=== PATIENT | male | born 1985 | race Hispanic/Latino ===

== ENCOUNTER 2021-07-12 05:21 | Inpatient (IN) | payer OTHER ==
[~2021-07-12] VITALS: Ht 185.4 cm; Wt 220.0 kg
[2021-07-12] MEDS ORDERED: KETOROLAC 15MG/ML VIAL (15MG/ML) IV ONE (06:00)
[2021-07-12] MEDS ORDERED: ACETAMINOPHEN 500 MG TABLET PO ONE (06:00)
[2021-07-12] MEDS ORDERED: 0.9%NACL 1000ML 1,000 ML IV ONE (06:00)
[2021-07-12] MEDS: CEFTRIAXONE 1G VIAL IVP ONE ×2 (06:16→06:46)
[2021-07-12 06:43] LABS: BASOPHILS % (AUTO) 0.2 % (0.0-5.0); EOSINOPHILS % (AUTO) 0.6 % (0.0-8.0); HEMATOCRIT 38.7 % (42-54); LYMPHOCYTES % (AUTO) 18.4 % (21.0-51.0); MEAN CORPUSCULAR HEMOGLOBIN 27.9 pg (27.0-33.0); MEAN CORPUSCULAR HGB CONC 32.6 g/dL (32.0-36.0); MEAN CORPUSCULAR VOLUME 85.8 fL (79-99); NEUTROPHILS % (AUTO) 73.4 % (40.0-77.0); PLATELET COUNT (AUTO) 200 K/uL (130-400); RED BLOOD CELL COUNT(AUTO) 4.51 MIL/uL (4.50-6.20); WHITE BLOOD COUNT (AUTO) 12.1 K/uL (4.8-10.8)
[2021-07-12 07:13] LABS: ALBUMIN 3.1 g/dL (3.5-5.0); BILIRUBIN,TOTAL 0.4 mg/dL (0.2-1.0); CREATININE 0.7 mg/dL (0.5-1.5); CRP QUANTITATIVE 174.4 mg/L (0.00-9.0); POTASSIUM 3.7 mmol/L (3.5-5.1); TOTAL PROTEIN, SERUM 7.6 g/dL (6.0-8.3)
[2021-07-12 08:10] LABS: ERYTHROCYTE SEDIMENTATION RATE 67 MM/HR (0-15)
[2021-07-12] MEDS ORDERED: ONDANSETRON 4MG INJ IVP ONE (09:30)
[2021-07-12] MEDS ORDERED: ZOSYN 3.375GM +NS 50ML IV SCH (09:30)
[2021-07-12] MEDS ORDERED: MORPHINE 4 MG SYG IVP ONE (09:30)
[2021-07-12] MEDS: ZOSYN 3.375GM +NS 50ML IV SCH (10:00)
[2021-07-12] MEDS ORDERED: ACETAMINOPHEN 325 MG TAB PO PRN (10:00)
[2021-07-12 12:00] VITALS: BP 102/51
[2021-07-12] MEDS ORDERED: VANCOMYCIN PROTOCOL PER PHARMACY IV SCH (13:00)
[2021-07-12] MEDS ORDERED: ACETAMINOPHEN WITH CODEINE 1 TAB TAB PO PRN (13:00)
[2021-07-12] MEDS ORDERED: COMPOUND IV REFRIGERATED 1 EACH IVSOLN MISC PRN (13:30)
[2021-07-12] MEDS: 0.9%NACL 1000ML 1,000 ML IV SCH ×2 (14:42→21:25)
[2021-07-12] MEDS: VANCOMYCIN 1.5GM/NS 250ML IV SCH ×4 (14:42→21:25)
[2021-07-12 16:00] VITALS: BP 132/86
[2021-07-12] MEDS ORDERED: HYDROCODONE/ACETAMINOPHEN 10/325 MG TAB PO PRN (16:00)
[2021-07-12] MEDS: CEFTRIAXONE 2GM VIAL IVP SCH (18:27)
[2021-07-12] MEDS: MORPHINE 2 MG SYG IVP PRN ×2 (18:36→23:28)
[2021-07-12 18:57] LABS: APPEARANCE,URINE Clear (CLEAR); BILIRUBIN,URINE Negative (NEGATIVE); COLOR,URINE Dark Yellow (YELLOW); GLUCOSE, URINE (UA) Negative (NEGATIVE); KETONES,URINE Trace mg/dL (NEGATIVE); LEUKOCYTE ESTERASE ,URINE Negative (NEGATIVE); NITRATE,URINE Negative (NEGATIVE); OCCULT BLOOD,URINE Negative (NEGATIVE); PH,URINE 5.5 (5.0-8.0); PROTEIN,URINE Trace mg/dL (NEGATIVE)
[2021-07-12 19:28] LABS: BACTERIA,URINE Rare /HPF (None Seen); RBC,URINE 0-1 /HPF (0-1); SQUAMOUS EPITHELIAL CELL,UR 0-2 /HPF (0-2)
[2021-07-12 19:29] LABS: MUCUS,URINE Few LPF (None Seen)
[2021-07-12 19:48] VITALS: BP 102/48
[2021-07-12] MEDS: TERBINAFINE HCL 15 GM TUBE TP SCH (21:24)
[2021-07-12 23:10] VITALS: BP 121/65
[2021-07-13 04:15] VITALS: BP 118/55
[2021-07-13 05:14] LABS: BASOPHILS % (AUTO) 0.1 % (0.0-5.0); EOSINOPHILS % (AUTO) 1.7 % (0.0-8.0); HEMATOCRIT 37.4 % (42-54); LYMPHOCYTES % (AUTO) 15.7 % (21.0-51.0); MEAN CORPUSCULAR HEMOGLOBIN 28.1 pg (27.0-33.0); MEAN CORPUSCULAR HGB CONC 32.1 g/dL (32.0-36.0); MEAN CORPUSCULAR VOLUME 87.6 fL (79-99); MONOCYTES % (AUTO) 6.3 % (3.0-13.0); NEUTROPHILS % (AUTO) 75.7 % (40.0-77.0); PLATELET COUNT (AUTO) 209 K/uL (130-400); RED BLOOD CELL COUNT(AUTO) 4.27 MIL/uL (4.50-6.20); RED CELL DISTRIBUTION WIDTH 14.1 % (11.0-15.5); WHITE BLOOD COUNT (AUTO) 8.4 K/uL (4.8-10.8)
[2021-07-13 05:31] LABS: HEMOGLOBIN A1C 6.4 % (4.0-6.0)
[2021-07-13] MEDS: VANCOMYCIN 1.5GM/NS 250ML IV SCH ×6 (05:32→21:36)
[2021-07-13 05:38] LABS: ALBUMIN 2.5 g/dL (3.5-5.0); BILIRUBIN,TOTAL 0.3 mg/dL (0.2-1.0); CREATININE 0.9 mg/dL (0.5-1.5); CRP QUANTITATIVE 92.4 mg/L (0.00-9.0); POTASSIUM 4.4 mmol/L (3.5-5.1); TOTAL PROTEIN, SERUM 7.3 g/dL (6.0-8.3)
[2021-07-13 06:49] LABS: ERYTHROCYTE SEDIMENTATION RATE 79 MM/HR (0-15)
[2021-07-13 08:00] VITALS: BP 129/70
[2021-07-13] MEDS: TERBINAFINE HCL 15 GM TUBE TP SCH ×2 (09:00→21:00)
[2021-07-13] MEDS: ENOXAPARIN SODIUM 40 MG/0.4 ML SYRINGE SQ SCH (09:01)
[2021-07-13] MEDS: FAMOTIDINE 20MG TAB PO SCH (09:01)
[2021-07-13 11:28] VITALS: BP 135/79
[2021-07-13] MEDS: 0.9%NACL 1000ML 1,000 ML IV SCH (14:48)
[2021-07-13 16:00] VITALS: BP 120/70
[2021-07-13] MEDS: CEFTRIAXONE 2GM VIAL IVP SCH (17:22)
[2021-07-13 20:14] VITALS: BP 128/67
[2021-07-13] MEDS: MORPHINE 2 MG SYG IVP PRN (21:36)
[2021-07-13 23:58] VITALS: BP 101/67
[2021-07-14] MEDS: MORPHINE 2 MG SYG IVP PRN (02:07)
[2021-07-14 04:00] VITALS: BP 124/72
[2021-07-14 05:00] LABS: BASOPHILS % (AUTO) 0.1 % (0.0-5.0); EOSINOPHILS % (AUTO) 1.6 % (0.0-8.0); HEMATOCRIT 37.5 % (42-54); LYMPHOCYTES % (AUTO) 24.6 % (21.0-51.0); MEAN CORPUSCULAR HEMOGLOBIN 26.9 pg (27.0-33.0); MEAN CORPUSCULAR HGB CONC 30.7 g/dL (32.0-36.0); MEAN CORPUSCULAR VOLUME 87.6 fL (79-99); MONOCYTES % (AUTO) 6.1 % (3.0-13.0); PLATELET COUNT (AUTO) 240 K/uL (130-400); RED BLOOD CELL COUNT(AUTO) 4.28 MIL/uL (4.50-6.20); RED CELL DISTRIBUTION WIDTH 13.9 % (11.0-15.5); WHITE BLOOD COUNT (AUTO) 8.7 K/uL (4.8-10.8)
[2021-07-14 05:15] LABS: ALBUMIN 2.5 g/dL (3.5-5.0); BILIRUBIN,TOTAL 0.2 mg/dL (0.2-1.0); CREATININE 0.9 mg/dL (0.5-1.5); POTASSIUM 4.2 mmol/L (3.5-5.1); TOTAL PROTEIN, SERUM 7.4 g/dL (6.0-8.3)
[2021-07-14] MEDS: VANCOMYCIN 1.5GM/NS 250ML IV SCH ×2 (06:03)
[2021-07-14 07:56] VITALS: BP 118/63
[2021-07-14] MEDS ORDERED: ACET-2079 PO ×2 (07:57→08:46)
[2021-07-14] MEDS ORDERED: AMOX-426 PO ×2 (07:57→08:46)
[2021-07-14] MEDS: FAMOTIDINE 20MG TAB PO SCH (09:00)
[2021-07-14] MEDS: ENOXAPARIN SODIUM 40 MG/0.4 ML SYRINGE SQ SCH (09:00)
[2021-07-14] MEDS: TERBINAFINE HCL 15 GM TUBE TP SCH (09:00)
== END 2021-07-14 10:15 | disposition home or self-care (01) | DRG 603 ==
LOC: EDH 05:21 → EDHIP 05:22 → 3BH 11:17
PROVIDERS: ADMIT Hospitalist; ATTEND Hospitalist
DX: L03.115 Cellulitis of right lower limb (principal); Z68.44 Body mass index [BMI] 60.0-69.9, adult; E66.01 Morbid (severe) obesity due to excess calories; F17.210 Nicotine dependence, cigarettes, uncomplicated; I10 Essential (primary) hypertension; D72.829 Elevated white blood cell count, unspecified; Z71.6 Tobacco abuse counseling
CPT/HCPCS: 36415; 80053; 80202; 81001; 83036; 83605; 84145; 85025; 85378; 85651; 86140; 87040; 93971; G0378; J0696; J1650; J1885; J2270; J2405; J2543; J3370; J7030; J7050